=== PATIENT | female | born 1935 | race Caucasian/White ===

== ENCOUNTER 2022-06-28 13:40 | Outpatient (REF) | payer OTHER, SELFPAY ==
[2022-06-28 21:58] LABS: Anion Gap 8.9 mmol/L (3-11); BUN 19 mg/dL (7-18); CO2 25.1 mmol/L (21.0-32.0); CREATININE 0.9 mg/dL (0.55-1.02); Chloride 101 mmol/L (98-107); Estimated GFR 62.65 (mL/min/1.73m2); Glucose 113 mg/dL (74-106); Potassium 5.4 mmol/L (3.5-5.1); Sodium 135 mmol/L (136-145)
== END 2022-06-28 13:41 | disposition home or self-care (01) ==
LOC: NCHCN 13:40
PROVIDERS: PCP Family Medicine; Visit Provider Internal Medicine
DX: U07.1 COVID-19 (principal)
CPT/HCPCS: 80048

== ENCOUNTER 2022-09-19 10:03 | Outpatient (REF) | payer OTHER, SELFPAY ==
[2022-09-19 14:58] LABS: HCT 42.3 % (36.0-46.0); HGB 13.9 g/dL (11.2-15.7); MCH 31.7 pg (27.0-33.0); MCHC 32.9 % (32.0-36.0); MCV 96 fL (80-95); MPV 9.9 fL (8.0-11.0); Platelet Count 287 10^3/uL (130-400); RBC 4.39 10^6/uL (3.93-5.22); RDW 13.4 % (11.7-14.6); RDW-SD 47.1 fL; WBC 7.71 10^3/uL (4.4-10.8)
[2022-09-19 16:00] LABS: ALT 28 U/L (14-59); AST 21 U/L (15-37); Alkaline Phosphatase 104 U/L (46-116); Anion Gap 9.3 mmol/L (3-11); BUN 23 mg/dL (7-18); Bilirubin, Total 0.4 mg/dL (0.2-1.0); CO2 28.7 mmol/L (21.0-32.0); CREATININE 0.9 mg/dL (0.55-1.02); Calcium 9.4 mg/dL (8.5-10.1); Calculated LDL 175 mg/dL (<100); Chloride 106 mmol/L (98-107); Cholesterol 288 mg/dL (<200); Estimated GFR 62.65 (mL/min/1.73m2); Glucose 93 mg/dL (74-106); HDL Cholesterol 71 mg/dL (40-60); Potassium 4.5 mmol/L (3.5-5.1); Sodium 144 mmol/L (136-145); Total Protein 7.4 g/dL (6.4-8.2); Triglyceride 210 mg/dL (<150)
[2022-09-19 16:01] LABS: Vitamin D 25 Total 46.2 ng/mL (30-100)
== END 2022-09-19 10:04 | disposition home or self-care (01) ==
LOC: NCHCN 10:03
PROVIDERS: PCP Family Medicine; Visit Provider Family Medicine
DX: E78.5 Hyperlipidemia, unspecified (principal); I10 Essential (primary) hypertension; F32.89 Other specified depressive episodes; M85.88 Other specified disorders of bone density and structure, other site
CPT/HCPCS: 80053; 80061; 82306; 85027

== ENCOUNTER 2024-09-21 15:30 | Outpatient (REF) | payer MEDICARE, SELFPAY ==
[2024-09-21 21:44] LABS: HCT 44.2 % (36.0-46.0); HGB 14.3 g/dL (11.2-15.7); MCH 30.5 pg (27.0-33.0); MCHC 32.4 % (32.0-36.0); MCV 94 fL (80-95); MPV 9.8 fL (8.0-11.0); Platelet Count 319 10^3/uL (130-400); RBC 4.69 10^6/uL (3.93-5.22); RDW 12.7 % (11.7-14.6); RDW-SD 43.8 fL; WBC 7.82 10^3/uL (4.4-10.8)
[2024-09-21 21:56] LABS: ALT 26 U/L (14-59); AST 20 U/L (15-37); Alkaline Phosphatase 95 U/L (46-116); Anion Gap 7.4 mmol/L (3-11); BUN 22 mg/dL (7-18); Bilirubin, Total 0.7 mg/dL (0.2-1.0); CO2 29.6 mmol/L (21.0-32.0); CREATININE 0.9 mg/dL (0.55-1.02); Calcium 9.8 mg/dL (8.5-10.1); Chloride 106 mmol/L (98-107); Estimated GFR 61.87 (mL/min/1.73m2); Glucose 91 mg/dL (74-106); Potassium 5.2 mmol/L (3.5-5.1); Sodium 143 mmol/L (136-145); Total Protein 7.4 g/dL (6.4-8.2)
== END 2024-09-21 15:31 | disposition home or self-care (01) ==
LOC: NCHCN 15:30
PROVIDERS: PCP Family Medicine; Visit Provider Family Medicine
DX: I10 Essential (primary) hypertension (principal); Z00.00 Encounter for general adult medical examination without abnormal findings
CPT/HCPCS: 80053; 85027